=== PATIENT | male | born 1965 | race Caucasian/White ===

== ENCOUNTER → 2017-10-17 | Outpatient (CLI) | payer OTHER | LOC: COL.RAD 10:00 | DX: C78.02 Secondary malignant neoplasm of left lung (principal); C78.01 Secondary malignant neoplasm of right lung; J90 Pleural effusion, not elsewhere classified; R18.8 Other ascites; R16.0 Hepatomegaly, not elsewhere classified; T85.590A Other mechanical complication of bile duct prosthesis, initial encounter; Z85.038 Personal history of other malignant neoplasm of large intestine; C77.1 Secondary and unspecified malignant neoplasm of intrathoracic lymph nodes; C77.2 Secondary and unspecified malignant neoplasm of intra-abdominal lymph nodes | CPT/HCPCS: Q9967 ==